=== PATIENT | female | born 1965 | race Caucasian/White ===

== ENCOUNTER 2017-05-03 09:42 | Emergency (ER) | payer OTHER ==
[2017-05-03 12:32] VITALS: BP 109/56
--- NOTE | 2017-05-03 12:37 | UC ---
Hand/Wrist HPI - HPI Summary HPI Summary: states she has carpel tunnel syndrome and awake with pain and bruising in her right hand believes she must have injured it in the night--pt states she was suppose to follow with orthopedic MD but has other medical issues that took precedence- - History Of Current Complaint Hx Obtained From: Patient Hx Last Menstrual Period: on depo ?: No Mechanism Of Injury: unsure Onset/Duration: Gradual Onset, Lasting Weeks Severity Initially: Moderate Severity Currently: Moderate Character Of Pain: Aching, Throbbing, Burning, Unable To Describe - gets numb from time to time Aggravating Factor(s): Movement Alleviating Factor(s): Nothing Associated Signs And Symptoms: Positive: Bruising Related History: Dominant Hand Right <Edita Bermudez - Last Filed: 05/03/17 19:56> <Tiffanie Wilson - Last Filed: 05/03/17 20:08> - History Of Current Complaint Chief Complaint: UCUpperExtremity Stated Complaint: RIGHT ARM/FINGER/WRIST PAIN Time Seen by Provider: 05/03/17 12:30 - Allergies/Home Medications Allergies/Adverse Reactions: Allergies Allergy/AdvReac Type Severity Reaction Status Date / Time [place] Allergy Severe Swelling Verified 05/03/17 12:32 Of Face,Lips,& Throat Home Medications: Home Medications Alprazolam [Xanax Xr] 2 mg PO BID 05/03/17 [History Confirmed 05/03/17] Bp Med Starts W/ "V" 1 tab PO DAILY 05/03/17 [History Confirmed 05/03/17] [place] Carbonate 150 mg PO DAILY 05/03/17 [History Confirmed 05/03/17] Magnesium [Magnesium 400 mg] 1 tab PO DAILY 05/03/17 [History Confirmed 05/03/17 ] Venlafaxine ER (NF) [Effexor ER (NF)] 300 mg PO DAILY 05/03/17 [History Confirmed 05/03/17] Vitamin B Complex CAP* [B Complex CAP*] 1 cap PO DAILY 05/03/17 [History Confirmed 05/03/17] PMH/Surg Hx/FS Hx/Imm Hx Previously Healthy: No Cardiovascular History: Cardiac Disease Neurological History: CVA Psychological History: Anxiety, Bipolar Disorder - Surgical History Surgical History: Yes Surgery Procedure, Year, and Place: bariatric sleeve surgery Mar 2015, tonsillectomy May 2014, piedad 1982, 2 d&c 2003 & 2004 - Family History Known Family History: Positive: Cardiac Disease, Diabetes - Social History Occupation: Disabled Lives: With Family Alcohol Use: Rare Substance Use Type: Prescribed Smoking Status (MU): Former Smoker Type: Cigarettes When Did the Patient Quit Smoking/Using Tobacco: 25 years ago <Edita Bermudez - Last Filed: 05/03/17 19:56> Review of Systems Constitutional: Negative Skin: Negative Eyes: Negative ENT: Negative Respiratory: Negative Cardiovascular: Negative Gastrointestinal: Negative Genitourinary: Negative Motor: Negative Neurovascular: Negative Musculoskeletal: Arthralgia - right hand/wrist Neurological: Negative Psychological: Negative Is Patient Immunocompromised?: No All Other Systems Reviewed And Are Negative: Yes <Edita Bermudez - Last Filed: 05/03/17 19:56> Physical Exam Triage Information Reviewed: Yes Appearance: Well-Appearing, Pain Distress - mild, Obese Vital Signs Reviewed: Yes Eye Exam: Normal Eyes: Positive: Conjunctiva Clear ENT Exam: Normal ENT: Positive: Normal ENT inspection, Hearing grossly normal. Negative: Nasal congestion, Trismus, Muffled voice, Hoarse voice Dental Exam: Normal Neck exam: Normal Neck: Positive: Supple, Nontender, No Lymphadenopathy Respiratory Exam: Normal Respiratory: Positive: Chest non-tender, Lungs clear, Normal breath sounds, No respiratory distress, No accessory muscle use Cardiovascular Exam: Normal Cardiovascular: Positive: RRR, Pulses Normal, Brisk Capillary Refill Musculoskeletal Exam: Normal Musculoskeletal: Positive: Strength Limited @ - right wrist, ROM Limited @ - wrist wrist, Edema @ - right hand near thumb Neurological Exam: Normal Neurological: Positive: Alert, Muscle Tone Normal Psychological Exam: Normal Skin Exam: Normal <Edita Bermudez - Last Filed: 05/03/17 19:56> Vital Signs: Initial Vital Signs Temp 98.7 F 05/03/17 12:27 Pulse 91 05/03/17 12:27 Resp 16 05/03/17 12:27 BP 109/56 05/03/17 12:27 Pulse Ox 98 05/03/17 12:27 <Tiffanie Wilson - Last Filed: 05/03/17 20:08> Diagnostics - Radiology No standard instances Xray Interpretation: No Acute Changes Radiology Interpretation Completed By: ED Physician, Radiologist <Edita Bermudez - Last Filed: 05/03/17 19:56> Hand/Wrist Course/Dx - Course Course Of Treatment: cock up, rice, ibuprofen follow with orthopedic MD - Differential Dx/Diagnosis Provider Diagnoses: right carpel tunnel <Edita Bermudez - Last Filed: 05/03/17 19:56> Discharge <Edita Bermudez - Last Filed: 05/03/17 19:56> <Tiffanie Wilson - Last Filed: 05/03/17 20:08> - Discharge Plan Condition: Stable Disposition: HOME Prescriptions: Acetaminop/Codeine 30 MG TAB* [Tylenol/Codeine 30 MG TAB*] 1 - 2 tab PO Q6H PRN #20 tab MDD 6 PRN Reason: pain Patient Education Materials: Paresthesia (ED) Referrals: Willis Garrison MD [Medical Doctor] - 5 Days Attestation Statement User Type: Provider - I was available for consult. This patient was seen by the ZULLY. The patient was not presented to, seen by, or examined by me. -Boy <Tiffanie Wilson - Last Filed: 05/03/17 20:08>
--- NOTE | 2017-05-03 13:02 | RAD ---
INDICATION: Right hand injury COMPARISON: None TECHNIQUE: AP, lateral, and oblique views were obtained. FINDINGS: The bony structures, joint spaces, and soft tissues are normal for age. IMPRESSION: NO ACUTE BONY FINDINGS.
== END 2017-05-03 13:19 | disposition home or self-care (01) ==
LOC: UCCORT 09:42
DX: G56.01 Carpal tunnel syndrome, right upper limb (principal); Z87.891 Personal history of nicotine dependence
CPT/HCPCS: 99213; G0463

== ENCOUNTER 2017-05-13 07:24 | Day surgery (SDC) | payer OTHER ==
[~2017-05-13 07:24] MED LIST: Buffered Lidocaine 0.9% SYRIN* 5 ML/SYR SYRINGE INTRADERM ONE; Famotidine IV* 10 MG/ML 2 ML (20 mg) IV ONE
[2017-05-13] MEDS ORDERED: Famotidine IV* 10 MG/ML 2 ML (20 mg) ONE (07:28)
[2017-05-13] MEDS ORDERED: ceFAZolin 2 GM PREMIX (*) 2 GM/50 ML BAG IVPB ONE (07:28)
[2017-05-13] MEDS ORDERED: Midazolam* 1 MG/ML 2 ML VIAL (2 MG) ONE (07:48)
[2017-05-13] MEDS ORDERED: fentaNYL* 50 MCG/ML 2 ML VIAL (100 MCG VIAL) ONE (07:48)
[2017-05-13] MEDS ORDERED: Lidocaine 2% PF* 10 ML AMP ONE (08:25)
[2017-05-13] MEDS ORDERED: DiMENhydriNATE IV* 50 MG/ML VIAL ONE (09:13)
[2017-05-13] MEDS ORDERED: Ondansetron INJ* 2 MG/ML VIAL ONE (09:13)
[2017-05-13] MEDS ORDERED: Propofol* 10 MG/ML 20 ML BTL IV PUSH ONE (09:13)
[2017-05-13] MEDS ORDERED: Dexamethasone IV* 4 MG/ML 1 ML (4 MG) ONE (09:13)
[2017-05-13] MEDS ORDERED: Lidocaine 2% PF * 5 ML VIAL ONE (09:13)
[2017-05-13] MEDS ORDERED: Ketorolac INJ* 30 MG/ML 1 ML VIAL ONE (09:13)
[2017-05-13] MEDS ORDERED: HYDROmorphone INJ* 1 MG/ML CARPUJECT SYRINGE IV PRN (09:59)
[2017-05-13] MEDS ORDERED: Acetaminophen TAB* 325 MG PO PRN (09:59)
[2017-05-13] MEDS ORDERED: DiMENhydriNATE IV* 50 MG/ML VIAL IV PUSH PRN (09:59)
[2017-05-13] MEDS ORDERED: HYDROmorphone INJ* 1 MG/ML CARPUJECT SYRINGE ONE ×2 (10:02→10:58)
[2017-05-13] MEDS ORDERED: oxyCODONE TAB* 5 MG TAB ONE (10:34)
[2017-05-13] MEDS ORDERED: Acetaminophen TAB* 325 MG ONE (10:34)
[2017-05-13] MEDS: oxyCODONE TAB* 5 MG TAB PO PRN ×2 (10:35→10:43)
[2017-05-13 11:45] VITALS: BP 123/86
--- NOTE | 2017-05-14 14:06 | OP ---
DATE OF OPERATION: 05/13/17 - [facility] DATE OF : 69 SURGEON: Willis Villa MD CAPPER MACHINE OPERATOR: Gisela Mcmahon PA-C PRE-OP DIAGNOSES: Right hallux valgus instability and degenerative changes and long second metatarsal. POST-OP DIAGNOSES: Right hallux valgus instability and degenerative changes and long second metatarsal. OPERATIVE PROCEDURE: Right first MTP joint fusion and second metatarsal shortening osteotomy. DESCRIPTION OF PROCEDURE: The patient was taken to the operating room where a longitudinal incision was made over the first MTP joint. Medial and lateral flap was raised to allow visualization of the joint. Joint itself did show some degenerative changes through the cartilage. The remaining cartilage was removed with a 2.4 mm power jacqueline and then we pinned the joint in a neutral position using a 24 mm cannulated screw. We then fashioned a rigid F plate over the dorsum of the joint, fixing this with a combination of locking and non- locking screws. X-rays intraoperatively showed satisfactory position of the joint, the hardware and the alignment. We made an incision just lateral to the second MTP joint. The flexor brevis tendon was released and then we created a double cut osteotomy in the direction of a Mitzy osteotomy. We removed a 2.5 mm wafer bone and then pinned the neck back to the metatarsal head with a 13-mm twist-off screw. We irrigated both wounds, closing with 3-0 Vicryl and nylon sutures and a compression dressing applied. [id number]/[facility] #: [id number] MTDD
--- NOTE | 2017-05-14 16:39 | RAD ---
INDICATION: Right first metatarsal fusion second metatarsal osteotomy. COMPARISON: Comparison is made with a prior x-ray study of the right foot from [facility] 2018. TECHNIQUE: 3 seconds of intermittent fluoroscopic guidance were provided and 3 spot films of the right foot were obtained in the operating room. FINDINGS: The films demonstrate a surgical fusion of the first metatarsal-phalangeal joint. There is a metallic plate along the dorsal aspect of the proximal phalanx and distal first metatarsal transfixed with multiple screws. There is an additional surgical screw projecting over the joint. The patient is also status post second metatarsal osteotomy. IMPRESSION: INTRAOPERATIVE CONTROL FILMS. CPT II Codes: 6045F
== END 2017-05-13 11:45 | disposition home or self-care (01) ==
LOC: OR 07:24
PROVIDERS: ATTEND Orthopaedic Surgery
DX: M20.11 Hallux valgus (acquired), right foot (principal); M20.41 Other hammer toe(s) (acquired), right foot; Z86.73 Personal history of transient ischemic attack (TIA), and cerebral infarction without residual deficits; Z79.01 Long term (current) use of anticoagulants; F32.9 Major depressive disorder, single episode, unspecified; Z87.891 Personal history of nicotine dependence; Z98.84 Bariatric surgery status; E11.40 Type 2 diabetes mellitus with diabetic neuropathy, unspecified; G47.33 Obstructive sleep apnea (adult) (pediatric); J45.909 Unspecified asthma, uncomplicated
CPT/HCPCS: 76000; 81025; A9270-GY; C1713; C1769; C1776; J0690; J1100; J1170; J1240; J1885; J2001; J2250; J2405; J2704; J3010

== ENCOUNTER 2017-08-04 16:30 | Emergency (ER) | payer OTHER ==
[2017-08-04 17:04] VITALS: BP 143/72
--- NOTE | 2017-08-04 17:10 | UC ---
Lower Extremity/Ankle HPI - HPI Summary HPI Summary: C/O right 4nd toe pain since tripping on the stairs last night. - History of Current Complaint Chief Complaint: UCLowerExtremity Stated Complaint: RIGHT FOOT TOE INJURY Time Seen by Provider: 08/04/17 17:04 Hx Obtained From: Patient Hx Last Menstrual Period: unknown, just stopped depo ?: No Onset/Duration: Sudden Onset - last night Severity Initially: Severe Severity Currently: Severe Pain Intensity: 10 Aggravating Factor(s): Standing, Ambulation Alleviating Factor(s): Rest, Elevation Able to Bear Weight: Yes - Allergies/Home Medications Allergies/Adverse Reactions: Allergies Allergy/AdvReac Type Severity Reaction Status Date / Time strawberry Allergy Swelling Verified 08/04/17 16:57 Of Face,Lips,& Throat PMH/Surg Hx/FS Hx/Imm Hx Respiratory History: Asthma Neurological History: CVA - Surgical History Surgical History: Yes Surgery Procedure, Year, and Place: bariatric sleeve surgery Mar 2015, tonsillectomy May 2014, piedad 1982, 2 d&c 2003 & 2004 - Family History Known Family History: Positive: Cardiac Disease, Hypertension, Diabetes - Social History Occupation: Works From/At Home Lives: With Family Alcohol Use: Rare Substance Use Type: Prescribed Smoking Status (MU): Former Smoker Type: Cigarettes Amount Used/How Often: smoked for about a year 1/4ppd When Did the Patient Quit Smoking/Using Tobacco: 25 years ago Review of Systems Musculoskeletal: Arthralgia Is Patient Immunocompromised?: No All Other Systems Reviewed And Are Negative: Yes Physical Exam Triage Information Reviewed: Yes Appearance: Well-Appearing, Pain Distress - moderate to severe, Obese Vital Signs: Initial Vital Signs Temp 98.6 F 08/04/17 16:57 Pulse 86 08/04/17 16:57 Resp 24 08/04/17 16:57 BP 143/72 08/04/17 16:57 Pulse Ox 99 08/04/17 16:57 Vital Signs Reviewed: Yes Eyes: Positive: Conjunctiva Clear Neck exam: Normal Respiratory Exam: Normal Cardiovascular Exam: Normal Musculoskeletal: Positive: ROM Limited @ - right foot, Other: - Tender over the 4th toe and the distal metatarsal. Neurological Exam: Normal Psychological Exam: Normal Skin Exam: Normal Diagnostics - Radiology No standard instances Xray Interpretation: Positive (See Comments) Radiology Interpretation Completed By: ED Physician Lower Extremity Course/Dx - Differential Dx/Diagnosis Differential Diagnosis/HQI/PQRI: Fracture (Closed), Fracture (Open), Sprain, Strain Provider Diagnoses: Fracture right 4th proximal phalynx Discharge - Sign-Out/Discharge Documenting (check all that apply): Discharge - Discharge Plan Condition: Stable Disposition: HOME Prescriptions: Ketorolac TAB * [Toradol TAB *] 10 mg PO Q6H PRN #20 tab PRN Reason: Pain - Moderate To Severe Patient Education Materials: Toe Fracture (ED), Ketorolac (By injection) Referrals: Victoria Stephenson MD [Primary Care Provider] - Additional Instructions: Keep the foot elevated and ice every 2 hours if possible for the first 48 hours. Use the Walking shoe to avoid bending the toe. - Billing Disposition and Condition Condition: STABLE Disposition: HOME
[2017-08-04] MEDS ORDERED: Ketorolac INJ* 60 MG/2 ML VIAL IM ONE (17:37)
--- NOTE | 2017-08-04 17:50 | RAD ---
HISTORY: Trauma, fourth toe pain COMPARISONS: July 31, 2017 VIEWS: 3, Frontal, lateral, and oblique views of the right foot FINDINGS: BONE DENSITY: There is diffuse osteopenia. BONES: There is a nondisplaced fracture of the proximal phalanx of the fourth digit. The patient is status post first MTP fusion. There is postsurgical change to the head of the second metatarsal. There are calcaneal enthesophytes. 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 SOFT TISSUES: Unremarkable. OTHER FINDINGS: None. IMPRESSION: 1. NONDISPLACED FRACTURE OF THE PROXIMAL PHALANX OF THE FOURTH DIGIT. 2. POST SURGICAL CHANGE. 3. OSTEOPENIA. 4. OSTEOARTHRITIS.
== END 2017-08-04 18:18 | disposition home or self-care (01) ==
LOC: UCCORT 16:30
DX: S92.511A Displaced fracture of proximal phalanx of right lesser toe(s), initial encounter for closed fracture (principal); W18.49XA Other slipping, tripping and stumbling without falling, initial encounter; Y93.01 Activity, walking, marching and hiking; Y92.9 Unspecified place or not applicable
CPT/HCPCS: 96372; 99212; G0463; J1885

== ENCOUNTER 2017-12-01 21:28 | Emergency (ER) | payer OTHER ==
[2017-12-01 21:39] VITALS: BP 121/95
[2017-12-01] MEDS ORDERED: diPHENhydraMINE PO* 50 MG PO ONE (21:45)
[2017-12-01] MEDS ORDERED: predniSONE TAB* 20 MG PO ONE (21:45)
--- NOTE | 2017-12-01 21:51 | ED ---
Upper Extremity Pain - HPI Summary HPI Summary: 52 yr old female with right forearm sting from last night. She felt something sting her in the right forearm last evening. This evening she has a circular red raised confluent well demarcated la posta. She states it is itching and swollen this evening. Denies fever, chills. No proximal arm pain. - History of Current Complaint Chief Complaint: UCSkin Stated Complaint: SKIN COMPLAINT-POSS BUG BITE Time Seen by Provider: 12/01/17 21:35 Hx Last Menstrual Period: 10/22/17 - Allergies/Home Medications Allergies/Adverse Reactions: Allergies Allergy/AdvReac Type Severity Reaction Status Date / Time strawberry Allergy Swelling Verified 12/01/17 21:39 Of Face,Lips,& Throat Home Medications: Home Medications traZODone TAB* [Desyrel TAB*] 150 mg PO BEDTIME 12/01/17 [History Confirmed ] PMH/Surg Hx/FS Hx/Imm Hx Endocrine/Hematology History: Reports: Hx Diabetes - controlled since bariatric surgery--lost 131 pounds (from the gastric sleev Denies: Hx Thyroid Disease Cardiovascular History: Denies: Hx Congestive Heart Failure, Hx Deep Vein Thrombosis, Hx Hypertension , Hx Myocardial Infarction, Hx Pacemaker/ICD, Other Cardiovascular Problems/ Disorders Respiratory History: Reports: Hx Asthma, Hx Sleep Apnea Denies: Hx Lung Cancer GI History: Reports: Hx Gastroesophageal Reflux Disease Denies: Hx Gall Bladder Disease, Hx Gastrointestinal Bleed, Hx Ulcer, Hx Urosepsis History: Denies: Hx Kidney Stones, Hx Renal Disease Musculoskeletal History: Reports: Other Musculoskeletal History - torn ligament right knee old injury Sensory History: Reports: Hx Contacts or Glasses - glasses Denies: Hx Hearing Aid Opthamlomology History: Reports: Hx Contacts or Glasses - glasses Neurological History: Reports: 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 Denies: Hx Dementia, Hx Migraine, Hx Seizures, Hx Transient Ischemic Attacks (TIA) Psychiatric History: Reports: Hx Anxiety Denies: Hx Depression, Hx Schizophrenia, Hx Bipolar Disorder - Cancer History Hx Chemotherapy: No - Surgical History Surgery Procedure, Year, and Place: bariatric sleeve surgery Mar 2015, tonsillectomy May 2014, piedad 1982, 2 d&c 2003 & 2004, hiatal hernia repair [facility] 10/22/17 Hx Anesthesia Reactions: No Infectious Disease History: No Infectious Disease History: Denies: Traveled Outside the [place] in Last 30 Days - Family History Known Family History: Positive: Cardiac Disease, Hypertension, Diabetes - Social History Alcohol Use: Rare Substance Use Type: Reports: Prescribed Smoking Status (MU): Former Smoker Type: Cigarettes Amount Used/How Often: smoked for about a year 4ppd Review of Systems Constitutional: Negative Positive: Other - insect sting with some swelling right forearm. All Other Systems Reviewed And Are Negative: Yes Physical Exam Triage Information Reviewed: Yes Vital Signs On Initial Exam: Initial Vitals Temp Pulse Resp BP Pulse Ox 98.3 F 92 18 121/95 98 12/01/17 21:34 12/01/17 21:34 12/01/17 21:34 12/01/17 21:34 12/01/17 21:34 Vital Signs Reviewed: Yes Appearance: Positive: Well-Appearing, No Pain Distress Skin: Positive: Other - 2 inch diameter red raised wheel right forearm. No streaking. Mild increased warmth. Head/Face: Positive: Normal Head/Face Inspection Eyes: Positive: EOMI ENT: Positive: Normal ENT inspection, Pharynx normal. Negative: Muffled voice, Hoarse voice Neck: Positive: Supple Respiratory/Lung Sounds: Positive: Clear to Auscultation, Breath Sounds Present Cardiovascular: Positive: RRR. Negative: Murmur Abdomen Description: Negative: Distended Musculoskeletal: Positive: Strength/ROM Intact Neurological: Positive: Sensory/Motor Intact, Alert, Oriented to Person Place, Time, CN Intact II-III Psychiatric: Positive: Normal - Rhett Coma Scale Best Eye Response: 4 - Spontaneous Best Motor Response: 6 - Obeys Commands Best Verbal Response: 5 - Oriented Coma Scale Total: 15 Diagnostics - Vital Signs Vital Signs Temp Pulse Resp BP Pulse Ox 12/01/17 21:34 98.3 F 92 18 121/95 98 - Laboratory Lab Statement: Any lab studies that have been ordered have been reviewed, and results considered in the medical decision making process. Course/Dx - Course Course Of Treatment: 52 yr old female with localized reaction to possible wasp or bee sting. No cellulitis at this time. - Diagnoses Provider Diagnoses: Sting from hornet, wasp, or bee Discharge - Sign-Out/Discharge Documenting (check all that apply): Patient Departure - Discharge Plan Condition: Good Disposition: HOME Patient Education Materials: Insect Bite or Sting (ED) Referrals: Victoria Stephenson MD [Primary Care Provider] - Additional Instructions: use benadryl 25mg to 50 mg every 6 hours. Use ice. Call your primary doctor for follow up tomorrow. - Billing Disposition and Condition Condition: GOOD Disposition: Home
== END 2017-12-01 21:51 | disposition home or self-care (01) ==
LOC: UCCORT 21:28
DX: T63.461A Toxic effect of venom of wasps, accidental (unintentional), initial encounter (principal); E11.9 Type 2 diabetes mellitus without complications; Z91.018 Allergy to other foods; Y92.9 Unspecified place or not applicable
CPT/HCPCS: 99212; A9270-GY; G0463; J7512

== ENCOUNTER 2018-02-10 09:19 | Day surgery (SDC) | payer OTHER ==
[~2018-02-10 09:19] MED LIST changes: -Famotidine IV* 10 MG/ML 2 ML (20 mg) IV ONE
[2018-02-10] MEDS ORDERED: ceFAZolin 2 GM in NS PREMIX(*) 2 GM/100 ML BAG IVPB ONE (09:51)
[2018-02-10] MEDS ORDERED: Buffered Lidocaine 0.9% SYRIN* 5 ML/SYR SYRINGE ONE (09:52)
[2018-02-10] MEDS ORDERED: fentaNYL* 50 MCG/ML 2 ML VIAL (100 MCG VIAL) ONE (10:19)
[2018-02-10] MEDS ORDERED: Midazolam* 1 MG/ML 5 ML VIAL (5 MG) ONE (10:19)
[2018-02-10] MEDS ORDERED: Propofol* 10 MG/ML 20 ML BTL IV PUSH ONE ×2 (11:34→12:00)
[2018-02-10] MEDS ORDERED: Lidocaine 2% PF* 10 ML AMP ONE (11:37)
[2018-02-10] MEDS ORDERED: Midazolam* 1 MG/ML 2 ML VIAL (2 MG) ONE (11:40)
[2018-02-10] MEDS ORDERED: Acetaminophen IV 1GM/100ML * 1,000 MG/100 ML VIAL IVPB ONE (12:28)
[2018-02-10] MEDS ORDERED: Naloxone* 0.4 MG/ML 1 ML VIAL IV PRN (12:28)
[2018-02-10] MEDS ORDERED: Ketorolac INJ* 30 MG/ML 1 ML VIAL IV PRN (12:28)
[2018-02-10] MEDS ORDERED: Acetaminophen IV 1GM/100ML * 100 ML ONE (12:28)
[2018-02-10] MEDS ORDERED: Ketorolac INJ* 30 MG/ML 1 ML VIAL ONE (12:28)
[2018-02-10] MEDS ORDERED: oxyCODONE TAB* 5 MG TAB PO PRN (12:28)
[2018-02-10] MEDS ORDERED: Ondansetron INJ* 2 MG/ML VIAL ONE (12:44)
[2018-02-10] MEDS ORDERED: oxyCODONE TAB* 5 MG TAB ONE (12:44)
[2018-02-10 13:13] VITALS: BP 137/93
--- NOTE | 2018-02-10 21:49 | OP ---
DATE OF OPERATION: 02/10/18 - [facility] DATE OF : 69 SURGEON: Willis Villa MD COOK CANDY: Gisela Mcmahon PA-C PRE-OP DIAGNOSES: Degenerative arthritis, severe hallux valgus, left first metatarsophalangeal joint. POST-OP DIAGNOSES: Degenerative arthritis, severe hallux valgus, left first metatarsophalangeal joint. OPERATIVE PROCEDURE: Left first MTP joint fusion. DESCRIPTION OF PROCEDURE: The patient was taken to the operating room where longitudinal incision was made over the first MTP joint. Medial, lateral flap was used to expose the joint surfaces. We used the ball and cone reamers of the Arthrex fusion kit. We then opposed the surfaces of the joint in a neutral position and placed a 3.0-mm cannulated screw obliquely proximal medial to distal lateral. We then fixed an Arthrex fusion plate over the left first MTP joint dorsally fixing this with a combination of non-locking and locking screws. X-rays intraoperatively showed satisfactory position of the bone surfaces on the plate itself. We then irrigated dorsally closing with 3-0 Vicryl and 4-0 nylon and a compression dressing applied. [id number]/[facility] #: [id number] [facility]
--- NOTE | 2018-02-11 07:35 | RAD ---
INDICATION: Left foot MTP joint fusion, hallux valgus COMPARISONS: None relevant TECHNIQUE: Fluoroscopy was provided for a surgical procedure. Total fluoroscopy time is: 3 seconds FINDINGS: Spot images demonstrate fusion across the first MTP joint of the left foot. IMPRESSION: FLUOROSCOPY WAS PROVIDED FOR A SURGICAL PROCEDURE CPT II Codes: G9500
== END 2018-02-10 13:31 | disposition home or self-care (01) ==
LOC: OR 09:19
PROVIDERS: ATTEND Orthopaedic Surgery
DX: M20.12 Hallux valgus (acquired), left foot (principal); M19.072 Primary osteoarthritis, left ankle and foot; Z87.891 Personal history of nicotine dependence; Z79.01 Long term (current) use of anticoagulants; F41.9 Anxiety disorder, unspecified; Z86.73 Personal history of transient ischemic attack (TIA), and cerebral infarction without residual deficits; J45.909 Unspecified asthma, uncomplicated
CPT/HCPCS: 76000; A9270-GY; C1713; J0690; J1885; J2001; J2250; J2405; J2704; J3010

== ENCOUNTER 2018-07-28 05:37 | Day surgery (SDC) | payer OTHER ==
[~2018-07-28 05:37] MED LIST changes: -Buffered Lidocaine 0.9% SYRIN* 5 ML/SYR SYRINGE INTRADERM ONE; +Buffered Lidocaine 1% SYRIN* 1 ML/SYRINGE INTRADERM ONE
[2018-07-28] MEDS ORDERED: Acetaminophen TAB* 325 MG PO ONE (06:00)
[2018-07-28] MEDS ORDERED: Lactated Ringers 1000 ML Bag* 1,000 ML IV SCH (06:00)
[2018-07-28] MEDS ORDERED: Acetaminophen TAB* 325 MG ONE (06:17)
[2018-07-28] MEDS ORDERED: Buffered Lidocaine 1% SYRIN* 1 ML/SYRINGE INTRADERM ONE (06:17)
[2018-07-28] MEDS ORDERED: ceFAZolin 2 GM in NS PREMIX(*) 2 GM/100 ML BAG IVPB ONE (06:17)
[2018-07-28] MEDS ORDERED: Bupivacaine 0.5%* 50 ML VIAL ONE (06:42)
[2018-07-28] MEDS ORDERED: Lidocaine 2% PF* 10 ML AMP ONE (06:43)
[2018-07-28] MEDS ORDERED: Midazolam* 1 MG/ML 2 ML VIAL (2 MG) ONE ×2 (07:17→07:39)
[2018-07-28] MEDS ORDERED: fentaNYL* 50 MCG/ML 2 ML VIAL (100 MCG VIAL) ONE ×2 (07:17→08:29)
[2018-07-28] MEDS ORDERED: Famotidine IV* 10 MG/ML 2 ML (20 mg) ONE (07:25)
[2018-07-28] MEDS ORDERED: Propofol* 10 MG/ML 20 ML BTL ONE ×2 (07:46→08:08)
[2018-07-28] MEDS ORDERED: Dexamethasone IV* 4 MG/ML 1 ML (4 MG) ONE (07:46)
[2018-07-28] MEDS ORDERED: Ketorolac INJ* 30 MG/ML 1 ML VIAL ONE (07:46)
[2018-07-28] MEDS ORDERED: Lidocaine 2% PF * 5 ML VIAL ONE (07:47)
[2018-07-28] MEDS ORDERED: Levalbuterol 0.63MG/3ML NEB* UNIT OF USE INH PRN (08:04)
[2018-07-28] MEDS ORDERED: DiMENhydriNATE IV* 50 MG/ML VIAL IV PUSH PRN (08:04)
[2018-07-28] MEDS ORDERED: diPHENhydraMINE IV* 50 MG/ML 1 ml VIAL (BENADRYL) IV PRN (08:04)
[2018-07-28] MEDS ORDERED: HYDROcodone/ACETAMIN 5-325 MG* 1 TAB PO PRN ×2 (08:04)
[2018-07-28] MEDS ORDERED: PROCHLORPERAZINE INJ 5 MG/ML 2 ML VIAL IV PRN (08:04)
[2018-07-28] MEDS ORDERED: Naloxone* 0.4 MG/ML 1 ML VIAL IV PRN (08:04)
[2018-07-28] MEDS ORDERED: HYDROcodone/ACETAMIN 5-325 MG* 1 TAB ONE (08:29)
[2018-07-28] MEDS ORDERED: Gabapentin CAP(*) 300 MG ONE (08:30)
[2018-07-28] MEDS: fentaNYL* 50 MCG/ML 2 ML VIAL (100 MCG VIAL) IV PRN ×4 (08:32→08:56)
[2018-07-28] MEDS ORDERED: DiMENhydriNATE IV* 50 MG/ML VIAL ONE (09:19)
[2018-07-28 09:31] VITALS: BP 117/80
--- NOTE | 2018-07-28 14:18 | OP ---
DATE OF OPERATION: 07/28/18 - [facility] DATE OF : 69 SURGEON: Willis Villa MD. FIBERGLASS FABRICATOR: Gisela Mcmahon PA-C. PRE-OP DIAGNOSIS: Painful hardware, right first metatarsophalangeal joint. POST-OP DIAGNOSIS: Painful hardware, right first metatarsophalangeal joint. OPERATIVE PROCEDURE: Removal of hardware, right first MTP joint. DESCRIPTION OF PROCEDURE: The patient was taken to the operating room where a longitudinal incision was made over her first MTP joint. Medial and lateral flap was raised to allow the F3 screwdriver to remove the hardware as well as a a 4.0 cannulated screw from the medial side. We then irrigated the wound, closed deep tissue with 3-0 Vicryl, subcu with 3-0 Vicryl, and nylon for the skin. A compression dressing was applied. [id number]/[facility] #: [id number] MTDD
== END 2018-07-28 10:25 | disposition home or self-care (01) ==
LOC: OR 05:37
PROVIDERS: ATTEND Orthopaedic Surgery
DX: T84.84XA Pain due to internal orthopedic prosthetic devices, implants and grafts, initial encounter (principal); Y83.1 Surgical operation with implant of artificial internal device as the cause of abnormal reaction of the patient, or of later complication, without mention of misadventure at the time of the procedure; M25.571 Pain in right ankle and joints of right foot; Z86.73 Personal history of transient ischemic attack (TIA), and cerebral infarction without residual deficits; Z79.01 Long term (current) use of anticoagulants; G47.33 Obstructive sleep apnea (adult) (pediatric); Q21.1 Atrial septal defect; F41.8 Other specified anxiety disorders; F43.10 Post-traumatic stress disorder, unspecified; K21.9 Gastro-esophageal reflux disease without esophagitis; J45.909 Unspecified asthma, uncomplicated
CPT/HCPCS: 88300; A9270-GY; J0690; J1100; J1240; J1885; J2001; J2250; J2704; J3010

== ENCOUNTER 2018-11-20 16:37 | Emergency (ER) | payer OTHER ==
[2018-11-20 17:01] VITALS: BP 140/95
--- NOTE | 2018-11-20 17:56 | ED ---
Upper Extremity Pain - HPI Summary HPI Summary: 53 yr old female with the complaint of right hand, wrist forearm pain. The patient fell when trying to hold her one year old [place] Singh back. She fell and landed on the right hand. She has pain at the base of the right 1st metacarpal, and at the distal right radius. She states the pain radiates up the right forearm. She has no other complaints. She rates her pain as moderate 6/10, worse with movement. - History of Current Complaint Chief Complaint: UCUpperExtremity Stated Complaint: RIGHT HAND INJURY Time Seen by Provider: 11/20/18 17:09 Hx Last Menstrual Period: 10/22/17 - Allergies/Home Medications Allergies/Adverse Reactions: Allergies Allergy/AdvReac Type Severity Reaction Status Date / Time strawberry Allergy Severe Swelling Verified 11/20/18 16:59 Of Face,Lips,& Throat PMH/Surg Hx/FS Hx/Imm Hx Endocrine/Hematology History: Reports: Hx Diabetes - NO MEDICATION FOR- MONITORING AT THIS TIME Denies: Hx Thyroid Disease Cardiovascular History: Reports: Hx Hypertension, Other Cardiovascular Problems/ Disorders - atrial septal defect Denies: Hx Congestive Heart Failure, Hx Deep Vein Thrombosis, Hx Myocardial Infarction, Hx Pacemaker/ICD Respiratory History: Reports: Hx Asthma, Hx Sleep Apnea Denies: Hx Lung Cancer GI History: Reports: Hx Gastroesophageal Reflux Disease - HX OF PRIOR TO HIATAL HERNIA REPAIR, Hx Hiatal Hernia - HX OF IN THE PAST, Other GI Disorders - 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 Denies: Hx Gall Bladder Disease, Hx Gastrointestinal Bleed, Hx Ulcer, Hx Urosepsis History: Denies: Hx Kidney Stones, Hx Renal Disease Musculoskeletal History: Reports: Other Musculoskeletal History - torn ligament right knee old injury Sensory History: Reports: Hx Contacts or Glasses - glasses Denies: Hx Hearing Aid Opthamlomology History: Reports: Hx Contacts or Glasses - glasses Neurological History: Reports: Hx Migraine - HX OF 2X PER MONTH-TREATS WITH MAGNESIUM, 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 wisdom teeth surgery. bunion surgery x2 02/2018,2017 Hx Anesthesia Reactions: No Infectious Disease History: No Infectious Disease History: Denies: Traveled Outside the [place] in Last 30 Days - Family History Known Family History: Positive: Cardiac Disease, Hypertension, Diabetes - Social History Occupation: Employed Full-time Alcohol Use: None Substance Use Type: Reports: None Smoking Status (MU): Former Smoker Type: Cigarettes Amount Used/How Often: smoked for about a year 1/4ppd Have You Smoked in the Last Year: No Review of Systems Constitutional: Negative Positive: Other - right hand, wrist pain All Other Systems Reviewed And Are Negative: Yes Physical Exam Triage Information Reviewed: Yes Vital Signs On Initial Exam: Initial Vitals Temp Pulse Resp BP Pulse Ox 99.1 F 92 18 140/95 99 11/20/18 16:56 11/20/18 16:56 11/20/18 16:56 11/20/18 16:56 11/20/18 16:56 Vital Signs Reviewed: Yes Appearance: Positive: Well-Appearing, No Pain Distress Skin: Positive: Warm, Skin Color Reflects Adequate Perfusion Head/Face: Positive: Normal Head/Face Inspection Eyes: Positive: EOMI ENT: Positive: Normal ENT inspection Neck: Positive: Nontender Respiratory/Lung Sounds: Positive: Clear to Auscultation, Breath Sounds Present Cardiovascular: Positive: RRR, Pulses are Symmetrical in both Upper and Lower Extremities Abdomen Description: Negative: Distended Musculoskeletal: Positive: Other - right distal radius, and right base 1st metacarpal are tender. She has snuff box tenderness. Neurological: Positive: Sensory/Motor Intact, Alert, Oriented to Person Place, Time, CN Intact II-III Psychiatric: Positive: Normal - Lindsay Coma Scale Best Eye Response: 4 - Spontaneous Best Motor Response: 6 - Obeys Commands Best Verbal Response: 5 - Oriented Coma Scale Total: 15 Procedures - Splinting Right Upper Extremity Location: right hand, wrist, forarm Hand-Made Type: orthoglass Splint: thumb spica Pre-Proc Neuro Vasc Exam: normal Post-Proc Neuro Vasc Exam: normal Diagnostics - Vital Signs Vital Signs Temp Pulse Resp BP Pulse Ox 11/20/18 16:56 99.1 F 92 18 140/95 99 - Laboratory Lab Statement: Any lab studies that have been ordered have been reviewed, and results considered in the medical decision making process. - Radiology right hand, wrist, forearm Radiology Interpretation Completed By: Radiologist - nad Course/Dx - Course Course Of Treatment: 53 yr old with snuff box tenderness, thumb spika splint applied by me. FU with Ortho referral. - Diagnoses Provider Diagnoses: Fracture of scaphoid of right wrist, Nondisplaced fracture, Hypertension Discharge - Sign-Out/Discharge Documenting (check all that apply): Patient Departure All imaging exams completed and their final reports reviewed: No - Discharge Plan Condition: Good Disposition: HOME Patient Education Materials: Scaphoid Fracture (ED) Referrals: Cat Marie MD [Primary Care Provider] - 2 Days Jefferson Dawn MD [Medical Doctor] - 2 Days - Billing Disposition and Condition Condition: GOOD Disposition: Home
--- NOTE | 2018-11-21 07:20 | ED ---
Progress - Progress Note Progress Note: radiology final read: neg for fracture on hand, wrist and forearm. Course/Dx - Course Course Of Treatment: 53 yr old with snuff box tenderness, thumb spika splint applied by me. FU with Ortho referral. - Diagnoses Provider Diagnoses: Fracture of scaphoid of right wrist, Nondisplaced fracture, Hypertension Discharge - Sign-Out/Discharge Documenting (check all that apply): Patient Departure All imaging exams completed and their final reports reviewed: Yes - Discharge Plan Condition: Good Disposition: HOME Patient Education Materials: Scaphoid Fracture (ED) Referrals: Jefferson Dawn MD [Medical Doctor] - 2 Days Cat Marie MD [Primary Care Provider] - 2 Days - Billing Disposition and Condition Condition: GOOD Disposition: Home
== END 2018-11-20 18:49 | disposition home or self-care (01) ==
LOC: UCCORT 16:37
DX: S62.001A Unspecified fracture of navicular [scaphoid] bone of right wrist, initial encounter for closed fracture (principal); Y93.K1 Activity, walking an animal; Y92.9 Unspecified place or not applicable; I10 Essential (primary) hypertension; E11.9 Type 2 diabetes mellitus without complications; Q21.1 Atrial septal defect; Z87.891 Personal history of nicotine dependence
CPT/HCPCS: 99211; G0463